=== PATIENT | male | born 1990 | race Hispanic/Latino ===

== ENCOUNTER 2018-04-11 08:44 | Inpatient (IN) | payer OTHER ==
[~2018-04-11] VITALS: Ht 182.9 cm; Wt 86.2 kg
[~2018-04-11 08:44] MED LIST: LEXAPRO10 MG PO; VIVANZ
[2018-04-11] MEDS ORDERED: MORPHINE SULFATE 2 MG/ML SYR IV STA (08:57)
[2018-04-11] MEDS ORDERED: ONDANSETRON HCL INJ 2 MG/ML VIAL IV STA (08:57)
[2018-04-11] MEDS ORDERED: SODIUM CHLORIDE 0.9% 1000ML 1,000 ML IV ONE (09:00)
[2018-04-11 09:03] LABS: BASOPHILS % 0.2 % (0.0-1.0); EOSINOPHILS # (AUTO) 0.1 (0.0-0.4); EOSINOPHILS % 0.3 % (0.0-6.0); HEMATOCRIT 42.3 % (38.2-49.6); HEMOGLOBIN 14.4 g/dL (14.0-18.0); LYMPHOCYTES # (AUTO) 2.4 (1.0-3.2); LYMPHOCYTES % 14.1 % (18.0-39.1); MEAN CORPUSCULAR HEMOGLOBIN 29.3 pg (28-32); MEAN CORPUSCULAR VOLUME 86.2 fL (81-99); MONOCYTES # (AUTO) 1.5 (0.2-0.8); MONOCYTES % 8.6 % (4.4-11.3); NEUTROPHILS # (AUTO) 12.8 (2.1-6.9); NEUTROPHILS % 76.3 % (38.7-80.0); PLATELET COUNT 242 x10e3/uL (140-360); RED BLOOD COUNT 4.91 x10e6/uL (4.3-5.7); RED CELL DISTRIBUTION WIDTH 13.2 % (11.7-14.4)
[2018-04-11 09:14] LABS: ALANINE AMINOTRANSFERASE 32 IU/L (0-55); ALBUMIN/GLOBULIN RATIO 0.9 (0.8-2.0); ALKALINE PHOSPHATASE 96 IU/L (40-150); BLOOD UREA NITROGEN 18 mg/dL (7-26); BUN/CREATININE RATIO 13 (6-25); CALCIUM 10.1 mg/dL (8.4-10.2); CARBON DIOXIDE 26 mmol/L (22-29); CHLORIDE 98 mmol/L (98-107); CREATININE, SERUM 1.34 mg/dL (0.72-1.25); EST GLOMERULAR FILTRATION RATE > 60 ML/MIN (60-); GLUCOSE 145 mg/dL (74-118); SODIUM 135 mmol/L (136-145)
[2018-04-11] MEDS ORDERED: SODIUM CHLORIDE 0.9% 50ML 50 ML ONE (09:52)
[2018-04-11] MEDS ORDERED: IOPAMIDOL 370 MG/ML 200 ML INFUS..BTL INJ ONE (09:52)
--- NOTE | 2018-04-11 10:46 | Diagnostic Imaging Report ---
PROCEDURE: CT ABDOMEN AND PELVIS WITH CONTRAST TECHNIQUE: The abdomen and pelvis were scanned utilizing a multidetector helical scanner from the diaphragm to the lesser trochanter after the IV administration of 100 cc of Isovue 370 and the oral administration of 900 cc of water. Coronal and sagittal multiplanar reformations were obtained. COMPARISON: None. INDICATIONS: RIGHT LOWER QUADRANT ABDOMINAL PAIN FINDINGS: LOWER THORAX: Normal. HEPATOBILIARY: No focal hepatic lesions. No biliary ductal dilatation. SPLEEN: No splenomegaly. PANCREAS: No focal masses or ductal dilatation. ADRENALS: No adrenal nodules. KIDNEYS/URETERS: No hydronephrosis or solid mass lesions. There is a 2 mm non-obstructing left mid pole renal stone. PELVIC ORGANS/BLADDER: Unremarkable. PERITONEUM / RETROPERITONEUM: Extensive stranding and inflammatory change in right lower quadrant with some free fluid. There is phlegmon with a punctate focus of air which may be extraluminal on series 2, image 70. No evidence of drainable fluid collection. LYMPH NODES: Periappendiceal lymph nodes are prominent measuring up to 7 mm short axis. VESSELS: Unremarkable. GI TRACT: The appendix is markedly inflamed measuring up to 1.8 cm with surrounding fat stranding. Appendicolith is present. There is reactive thickening of the cecum. No evidence of bowel obstruction. BONES AND SOFT TISSUES: Unremarkable. IMPRESSION: Appendicitis with extensive surrounding inflammatory changes and phlegmon, suggestive of microperforation. Possible punctate focus of extraluminal air. No evidence of drainable fluid collection. Findings discussed with referring clinician Christofer Greenwood on 04/11/18 at 1050AM. Dictated by: KRISTIE BELLA M.D. on 04/11/2018 at 10:51 Electronically approved by: KRISTIE BELLA M.D. on 04/11/2018 at 10:51
[2018-04-11] MEDS ORDERED: PIPERACILLIN/TAZO 4.5 GM 100 ML IV STA (10:53)
[2018-04-11] MEDS ORDERED: HYDROMORPHONE 1MG/1ML INJ IV STA (10:54)
[2018-04-11] MEDS ORDERED: FENTANYL CITRATE/PF 100MCG/2 ML INJ ONE (10:56)
[2018-04-11] MEDS: SODIUM CHLORIDE 0.9% 1000ML 1,000 ML IV SCH ×2 (12:33→21:35)
[2018-04-11] MEDS: HYDROMORPHONE 1MG/1ML INJ IV PRN ×2 (12:33→17:33)
[2018-04-11 13:07] VITALS: BP 150/87
[2018-04-11 13:25] VITALS: BP 150/87
[2018-04-11] MEDS ORDERED: ACETAMINOPHEN 1000 MG/100 ML IV PRN (14:00)
[2018-04-11 16:49] VITALS: BP 141/83
[2018-04-11] MEDS: ONDANSETRON HCL INJ 2 MG/ML VIAL IV PRN (17:33)
[2018-04-11] MEDS: PIPERACILLIN/TAZO 4.5 GM 100 ML IV SCH (17:33)
[2018-04-11] MEDS ORDERED: PIPER-TAZ 3.375 GM / NS 50ML IV SCH (19:00)
[2018-04-11 19:30] VITALS: BP 127/69
[2018-04-11] MEDS ORDERED: BUPIVACAINE 0.25%/EPI 30ML SDV INJ ONE (19:41)
[2018-04-11 22:07] VITALS: BP 132/84
--- NOTE | 2018-04-11 22:36 | Operative Report ---
DATE OF PROCEDURE: April 11, 2018 PREOPERATIVE DIAGNOSIS: Appendicitis. POSTOPERATIVE DIAGNOSIS: Perforated feculent peritonitis. OPERATIVE PROCEDURE: Laparoscopic appendectomy. ANESTHESIA: Endotracheal, Dr. Patton. INDICATIONS: Cmais[id number]-old male with 3-day history of pain in lower abdomen with fevers and nausea and vomiting. CT scan showed appendicitis with possible rupture. Patient had consented for laparoscopic appendectomy. Attendant risks discussed. PROCEDURE FINDINGS: Perforated appendicitis at the neck of the appendix with feculent peritonitis. DESCRIPTION OF PROCEDURE: The patient brought to the OR, intubated. Abdomen prepped with alcohol and draped in sterile fashion. An infraumbilical incision is made and a 12-mm port inserted intraperitoneally. Insufflation begun. Under direct vision, other port sites placed in the suprapubic and right upper quadrant. Patient has exudate and purulent material in the right lower quadrant and pelvic area. A large phlegmon containing small bowel, omentum, and colon is noted in the right lower quadrant. Using blunt dissection, the phlegmon is removing the omentum from the area of the appendix. The appendix is noted to be perforated at the neck with stool in the vicinity. We proceeded to contain the contamination as much as possible with suctioning and removal of feculent material with grasper. The neck of the appendix exposed by taking the mesoappendix first with the LigaSure instrument down to the base of the cecum. Using Endo RAVI stapler blue load, the neck of the appendix is transected through noninflamed tissue. Staple line checked for bleeding. Hemostasis achieved. The appendix was placed in Endopouch and retrieved out the peritoneal cavity. We used 3 liters of fluid to irrigate the pelvis in the right lower quadrant. We also all the loops of bowel to prevent interloop abscess. There is some collection in the right subdiaphragmatic area, which was also washed out carefully. A 19-Persian Lawrence drain is placed in the right paracolic gutters and taken out through the suprapubic port site. All ports were removed under direct vision. Fascia closure with #0 Vicryl, skin is closed with subcuticular stitch. Patient is then extubated and transported to recovery room in guarded condition. ESTIMATED BLOOD LOSS: 30 mL. Job#: [id number]
[2018-04-12] VITALS (8 sets, daily range): BP systolic 112–134; BP diastolic 64–75
[2018-04-12] MEDS: PIPERACILLIN/TAZO 4.5 GM 100 ML IV SCH ×3 (01:30→17:02)
[2018-04-12] MEDS: SODIUM CHLORIDE 0.9% 1000ML 1,000 ML IV SCH ×3 (02:18→16:17)
[2018-04-12] MEDS: HYDROMORPHONE 1MG/1ML INJ IV PRN ×4 (03:47→20:13)
[2018-04-12 05:33] LABS: BASOPHILS # (AUTO) 0.1 (0.0-0.1); BASOPHILS % 0.5 % (0.0-1.0); HEMATOCRIT 38.5 % (38.2-49.6); HEMOGLOBIN 13.3 g/dL (14.0-18.0); LYMPHOCYTES # (AUTO) 0.5 (1.0-3.2); LYMPHOCYTES % 4.6 % (18.0-39.1); MEAN CORPUSCULAR HGB CONC 34.5 g/dL (31-35); MEAN CORPUSCULAR VOLUME 86.7 fL (81-99); MONOCYTES # (AUTO) 0.6 (0.2-0.8); MONOCYTES % 5.6 % (4.4-11.3); NEUTROPHILS # (AUTO) 9.1 (2.1-6.9); PLATELET COUNT 221 x10e3/uL (140-360); RED BLOOD COUNT 4.44 x10e6/uL (4.3-5.7); RED CELL DISTRIBUTION WIDTH 13.4 % (11.7-14.4)
[2018-04-12 05:52] LABS: ANION GAP 13.1 mmol/L (8-16); BLOOD UREA NITROGEN 17 mg/dL (7-26); BUN/CREATININE RATIO 15 (6-25); CALCIUM 8.8 mg/dL (8.4-10.2); CARBON DIOXIDE 26 mmol/L (22-29); CHLORIDE 102 mmol/L (98-107); CREATININE, SERUM 1.13 mg/dL (0.72-1.25); EST GLOMERULAR FILTRATION RATE > 60 ML/MIN (60-); GLUCOSE 155 mg/dL (74-118); POTASSIUM 4.1 mmol/L (3.5-5.1); SODIUM 137 mmol/L (136-145)
[2018-04-12 06:22] LABS: BAND NEUTROPHILS % (MANUAL) 20 %; LYMPHOCYTES % (MANUAL) 7 % (19-48); MONOCYTES % (MANUAL) 6 % (3.4-9.0); NEUTROPHILS % (MANUAL) 67 % (40-74)
[2018-04-12 06:24] LABS: PLATELET ESTIMATE ADEQUATE; PLATELET MORPHOLOGY COMMENT NORMAL; RBC MORPHOLOGY COMMENT NORMAL
[2018-04-13] VITALS (8 sets, daily range): BP systolic 110–153; BP diastolic 59–86
[2018-04-13] MEDS: SODIUM CHLORIDE 0.9% 1000ML 1,000 ML IV SCH ×5 (00:12→23:00)
[2018-04-13] MEDS: HYDROMORPHONE 1MG/1ML INJ IV PRN ×5 (00:15→19:50)
[2018-04-13] MEDS: ONDANSETRON HCL INJ 2 MG/ML VIAL IV PRN ×5 (00:15→19:49)
[2018-04-13] MEDS: PIPERACILLIN/TAZO 4.5 GM 100 ML IV SCH ×3 (01:53→18:04)
[2018-04-13 06:27] LABS: BASOPHILS % 0.3 % (0.0-1.0); EOSINOPHILS % 0.3 % (0.0-6.0); HEMATOCRIT 36.1 % (38.2-49.6); HEMOGLOBIN 11.8 g/dL (14.0-18.0); LYMPHOCYTES # (AUTO) 0.8 (1.0-3.2); LYMPHOCYTES % 6.4 % (18.0-39.1); MEAN CORPUSCULAR HEMOGLOBIN 29.4 pg (28-32); MEAN CORPUSCULAR HGB CONC 32.7 g/dL (31-35); MONOCYTES # (AUTO) 0.5 (0.2-0.8); MONOCYTES % 3.9 % (4.4-11.3); NEUTROPHILS # (AUTO) 10.4 (2.1-6.9); NEUTROPHILS % 88.4 % (38.7-80.0); PLATELET COUNT 246 x10e3/uL (140-360); RED BLOOD COUNT 4.02 x10e6/uL (4.3-5.7); RED CELL DISTRIBUTION WIDTH 13.8 % (11.7-14.4)
[2018-04-13 06:33] LABS: MEAN CORPUSCULAR VOLUME 89.8 fL (81-99)
[2018-04-13 06:42] LABS: ANION GAP 11.9 mmol/L (8-16); BLOOD UREA NITROGEN 15 mg/dL (7-26); BUN/CREATININE RATIO 15 (6-25); CARBON DIOXIDE 29 mmol/L (22-29); CHLORIDE 99 mmol/L (98-107); CREATININE, SERUM 0.99 mg/dL (0.72-1.25); EST GLOMERULAR FILTRATION RATE > 60 ML/MIN (60-); GLUCOSE 145 mg/dL (74-118); POTASSIUM 3.9 mmol/L (3.5-5.1); SODIUM 136 mmol/L (136-145)
[2018-04-13 10:13] LABS: BAND NEUTROPHILS % (MANUAL) 19 %; EOSINOPHILS % (MANUAL) 1 % (0-7); LYMPHOCYTES % (MANUAL) 10 % (19-48); MONOCYTES % (MANUAL) 5 % (3.4-9.0); NEUTROPHILS % (MANUAL) 65 % (40-74); PLATELET ESTIMATE ADEQUATE; PLATELET MORPHOLOGY COMMENT NORMAL; RBC MORPHOLOGY COMMENT NORMAL
[2018-04-13] MEDS ORDERED: ONDANSETRON HCL INJ 2 MG/ML VIAL ONE (11:48)
[2018-04-13] MEDS ORDERED: ROCURONIUM BROMIDE 10 MG/ML 5ML VIAL ONE (11:48)
[2018-04-13] MEDS ORDERED: SEVOFLURANE INHAL SOLN 250 ML PEN BTL ONE (11:48)
[2018-04-13] MEDS ORDERED: CEFOXITIN SOD 1 GM VIAL ONE (11:48)
[2018-04-13] MEDS ORDERED: LIDOCAINE HCL 2% LOCAL INJ 5 ML SDV VIAL INJ ONE (11:48)
[2018-04-13] MEDS ORDERED: DEXAMETHASONE SOD PHOS INJ 4 MG/ML VIAL ONE (11:48)
[2018-04-13] MEDS ORDERED: PROPOFOL IV EMULSION 10 MG/ML 20 ML VIAL ONE (11:48)
[2018-04-14] VITALS (7 sets, daily range): BP systolic 117–151; BP diastolic 63–82
[2018-04-14] MEDS: PIPERACILLIN/TAZO 4.5 GM 100 ML IV SCH ×3 (02:13→17:27)
[2018-04-14] MEDS: HYDROMORPHONE 1MG/1ML INJ IV PRN ×6 (04:33→21:58)
[2018-04-14] MEDS: ONDANSETRON HCL INJ 2 MG/ML VIAL IV PRN ×6 (04:33→21:58)
[2018-04-14 05:46] LABS: BASOPHILS % 0.2 % (0.0-1.0); EOSINOPHILS # (AUTO) 0.2 (0.0-0.4); EOSINOPHILS % 1.3 % (0.0-6.0); HEMATOCRIT 34.5 % (38.2-49.6); HEMOGLOBIN 11.4 g/dL (14.0-18.0); LYMPHOCYTES # (AUTO) 1.2 (1.0-3.2); MEAN CORPUSCULAR HEMOGLOBIN 29.5 pg (28-32); MEAN CORPUSCULAR VOLUME 89.4 fL (81-99); MONOCYTES # (AUTO) 0.8 (0.2-0.8); NEUTROPHILS # (AUTO) 10.9 (2.1-6.9); NEUTROPHILS % 81.5 % (38.7-80.0); PLATELET COUNT 265 x10e3/uL (140-360); RED BLOOD COUNT 3.86 x10e6/uL (4.3-5.7); RED CELL DISTRIBUTION WIDTH 14.3 % (11.7-14.4)
[2018-04-14] MEDS: SODIUM CHLORIDE 0.9% 1000ML 1,000 ML IV SCH ×3 (06:17→20:58)
[2018-04-14 06:19] LABS: ALANINE AMINOTRANSFERASE 29 IU/L (0-55); ALBUMIN 2.2 g/dL (3.5-5.0); ALBUMIN/GLOBULIN RATIO 0.6 (0.8-2.0); ALKALINE PHOSPHATASE 86 IU/L (40-150); ANION GAP 11.7 mmol/L (8-16); BLOOD UREA NITROGEN 17 mg/dL (7-26); BUN/CREATININE RATIO 18 (6-25); CARBON DIOXIDE 28 mmol/L (22-29); CHLORIDE 102 mmol/L (98-107); CREATININE, SERUM 0.96 mg/dL (0.72-1.25); EST GLOMERULAR FILTRATION RATE > 60 ML/MIN (60-); GLUCOSE 117 mg/dL (74-118); POTASSIUM 3.7 mmol/L (3.5-5.1); SODIUM 138 mmol/L (136-145)
[2018-04-14] MEDS: HYDROCODONE/APAP 7.5MG-325MG 1 EA TAB PO PRN (18:17)
[2018-04-14] MEDS: ACETAMINOPHEN 325 MG TAB PO PRN (20:54)
[2018-04-15] VITALS (7 sets, daily range): BP systolic 124–151; BP diastolic 65–77
[2018-04-15] MEDS: PIPERACILLIN/TAZO 4.5 GM 100 ML IV SCH ×3 (02:00→17:21)
[2018-04-15] MEDS: SODIUM CHLORIDE 0.9% 1000ML 1,000 ML IV SCH ×4 (02:20→23:40)
[2018-04-15] MEDS: HYDROCODONE/APAP 7.5MG-325MG 1 EA TAB PO PRN ×3 (04:09→14:30)
[2018-04-15] MEDS: HYDROMORPHONE 1MG/1ML INJ IV PRN ×4 (05:20→19:56)
[2018-04-15 05:50] LABS: BASOPHILS # (AUTO) 0.1 (0.0-0.1); BASOPHILS % 0.9 % (0.0-1.0); EOSINOPHILS # (AUTO) 0.2 (0.0-0.4); EOSINOPHILS % 1.2 % (0.0-6.0); HEMATOCRIT 34.1 % (38.2-49.6); HEMOGLOBIN 11.4 g/dL (14.0-18.0); LYMPHOCYTES # (AUTO) 1.6 (1.0-3.2); LYMPHOCYTES % 11.7 % (18.0-39.1); MEAN CORPUSCULAR HEMOGLOBIN 29.5 pg (28-32); MEAN CORPUSCULAR HGB CONC 33.4 g/dL (31-35); MEAN CORPUSCULAR VOLUME 88.1 fL (81-99); MONOCYTES % 7.5 % (4.4-11.3); NEUTROPHILS # (AUTO) 10.3 (2.1-6.9); NEUTROPHILS % 74.2 % (38.7-80.0); PLATELET COUNT 308 x10e3/uL (140-360); RED BLOOD COUNT 3.87 x10e6/uL (4.3-5.7); RED CELL DISTRIBUTION WIDTH 14.6 % (11.7-14.4)
[2018-04-15 06:07] LABS: ANION GAP 13.5 mmol/L (8-16); BLOOD UREA NITROGEN 14 mg/dL (7-26); BUN/CREATININE RATIO 16 (6-25); CALCIUM 8.9 mg/dL (8.4-10.2); CARBON DIOXIDE 27 mmol/L (22-29); CHLORIDE 101 mmol/L (98-107); CREATININE, SERUM 0.88 mg/dL (0.72-1.25); EST GLOMERULAR FILTRATION RATE > 60 ML/MIN (60-); GLUCOSE 108 mg/dL (74-118); POTASSIUM 3.5 mmol/L (3.5-5.1); SODIUM 138 mmol/L (136-145)
[2018-04-15] MEDS ORDERED: BISACODYL 10 MG SUPP PR NR (07:45)
[2018-04-15 07:58] LABS: BAND NEUTROPHILS % (MANUAL) 1 %; EOSINOPHILS % (MANUAL) 1 % (0-7); LYMPHOCYTES % (MANUAL) 7 % (19-48); MONOCYTES % (MANUAL) 6 % (3.4-9.0); NEUTROPHILS % (MANUAL) 81 % (40-74)
[2018-04-15 07:59] LABS: ANISOCYTOSIS SLIGHT; HYPOCHROMASIA SLIGHT; PLATELET ESTIMATE ADEQUATE; PLATELET MORPHOLOGY COMMENT NORMAL; RBC MORPHOLOGY COMMENT NORMAL
[2018-04-15] MEDS: ONDANSETRON HCL INJ 2 MG/ML VIAL IV PRN (10:22)
--- NOTE | 2018-04-15 13:20 | Consultation ---
DATE OF CONSULTATION: April 11, 2018 CHIEF COMPLAINT: Abdominal pain. 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 He admits to some subjective fever and chills. No diarrhea. PAST MEDICAL HISTORY: Unremarkable for any asthma or diabetes. Only ADHD. He had no previous surgery. DRUG ALLERGIES: NONE. SOCIAL HABITS: No smoking and alcohol abuse. REVIEW OF SYSTEMS: No cough, shortness of breath or chest pain. EXAM VITAL SIGNS: Positive for temperature 101.3, blood pressure 140/80, with pulse 108. GENERAL: He is awake, alert in moderate discomfort. HEENT: Sclerae nonicteric. NECK: Supple. LUNGS: Clear. HEART: Regular rate and rhythm. ABDOMEN: Soft with guarding tenderness and rebound right lower quadrant. White cell count 17. Creatinine 1.3. CT scan of the abdomen showed evidence of inflamed appendix with possible perforation. ASSESSMENT: Acute perforated appendicitis. PLAN: Laparoscopic appendectomy. Attendant risks discussed. Job#: [id number]
[2018-04-16] VITALS: BP 134/68
[2018-04-16] MEDS: HYDROMORPHONE 1MG/1ML INJ IV PRN ×5 (00:15→21:10)
[2018-04-16] MEDS: ONDANSETRON HCL INJ 2 MG/ML VIAL IV PRN ×4 (00:15→17:09)
[2018-04-16] MEDS: SODIUM CHLORIDE 0.9% 1000ML 1,000 ML IV SCH ×3 (00:30→12:49)
[2018-04-16] MEDS: ACETAMINOPHEN 325 MG TAB PO PRN (00:30)
[2018-04-16] MEDS: PIPERACILLIN/TAZO 4.5 GM 100 ML IV SCH ×3 (02:01→17:09)
[2018-04-16 04:00] VITALS: BP 126/69
[2018-04-16] MEDS: HYDROCODONE/APAP 7.5MG-325MG 1 EA TAB PO PRN (05:37)
[2018-04-16 05:47] LABS: BASOPHILS # (AUTO) 0.1 (0.0-0.1); BASOPHILS % 0.8 % (0.0-1.0); EOSINOPHILS # (AUTO) 0.2 (0.0-0.4); EOSINOPHILS % 0.9 % (0.0-6.0); HEMOGLOBIN 10.9 g/dL (14.0-18.0); MEAN CORPUSCULAR HEMOGLOBIN 29.5 pg (28-32); MEAN CORPUSCULAR HGB CONC 34.1 g/dL (31-35); MEAN CORPUSCULAR VOLUME 86.7 fL (81-99); MONOCYTES # (AUTO) 1.2 (0.2-0.8); MONOCYTES % 6.9 % (4.4-11.3); NEUTROPHILS # (AUTO) 12.2 (2.1-6.9); NEUTROPHILS % 72.3 % (38.7-80.0); PLATELET COUNT 332 x10e3/uL (140-360); RED BLOOD COUNT 3.69 x10e6/uL (4.3-5.7); RED CELL DISTRIBUTION WIDTH 14.8 % (11.7-14.4)
[2018-04-16 06:10] LABS: ANION GAP 11.5 mmol/L (8-16); BLOOD UREA NITROGEN 11 mg/dL (7-26); BUN/CREATININE RATIO 13 (6-25); CALCIUM 8.7 mg/dL (8.4-10.2); CARBON DIOXIDE 29 mmol/L (22-29); CHLORIDE 102 mmol/L (98-107); CREATININE, SERUM 0.88 mg/dL (0.72-1.25); EST GLOMERULAR FILTRATION RATE > 60 ML/MIN (60-); GLUCOSE 109 mg/dL (74-118); POTASSIUM 3.5 mmol/L (3.5-5.1); SODIUM 139 mmol/L (136-145)
[2018-04-16 06:55] LABS: BAND NEUTROPHILS % (MANUAL) 3 %; EOSINOPHILS % (MANUAL) 1 % (0-7); LYMPHOCYTES % (MANUAL) 7 % (19-48); METAMYELOCYTES % (MANUAL) 3 % (0-0); MONOCYTES % (MANUAL) 5 % (3.4-9.0); NEUTROPHILS % (MANUAL) 81 % (40-74)
[2018-04-16 06:56] LABS: ANISOCYTOSIS SLIGHT; PLATELET ESTIMATE ADEQUATE; PLATELET MORPHOLOGY COMMENT NORMAL; POLYCHROMASIA FEW; RBC MORPHOLOGY COMMENT NORMAL
[2018-04-16 09:25] VITALS: BP 121/70
--- NOTE | 2018-04-16 11:55 | Diagnostic Imaging Report ---
PROCEDURE: CT ABDOMEN AND PELVIS WITH CONTRAST TECHNIQUE: The abdomen and pelvis were scanned utilizing a multidetector helical scanner from the diaphragm to the lesser trochanter after the IV administration of 100 cc of Isovue 370 and the oral administration of water. Coronal and sagittal multiplanar reformations were obtained. Total DLP: 418.20 COMPARISON: [facility], CT, CT ABDOMEN/PELVIS W, 04/11/2018, 10:18. INDICATIONS: ABDOMINAL PAIN. Ruptured appendicitis and prior recent examination. FINDINGS: TUBES and LINES: There is a surgical drain which enters the right lower quadrant anteriorly posterolaterally, with the distal tip in the right upper quadrant posterolaterally just lateral to segment 6 of the liver. LOWER THORAX: Interval development of bilateral small pleural effusions and posterior bibasilar compressive atelectasis. HEPATOBILIARY: No focal hepatic lesions. No biliary ductal dilatation. SPLEEN: No splenomegaly. PANCREAS: No focal masses or ductal dilatation. ADRENALS: No adrenal nodules. KIDNEYS/URETERS: No hydronephrosis, stones, or solid mass lesions. PELVIC ORGANS/BLADDER: Small functional fluid. PERITONEUM / RETROPERITONEUM: Small volume of free fluid within the peritoneal cavity, particularly in the pelvis. LYMPH NODES: Mild reactive mesenteric lymphadenopathy. VESSELS: Unremarkable. GI TRACT: Status post appendectomy with postoperative changes in the right lower quadrant. Small volume postoperative fluid in the right lower quadrant without loculated fluid collection at this time. There is decompression of the terminal ileum with a possible transitional point is seen on coronal image 38. BONES AND SOFT TISSUES: Unremarkable. IMPRESSION: 1. Status post appendectomy. Postoperative fat stranding/inflammatory changes and a small volume of free fluid, however, no loculated fluid collection at this time. 2. Dilated jejunal and ileal loops with decompressed distal ileum may represent postoperative ileus versus developing obstruction. Recommend followup KUBs to resolution. 3. Interval development of bilateral small pleural effusions and bibasilar compressive atelectasis. Prosper Brandon M.D. Dictated by: Prosper Brandon M.D. on 04/16/2018 at 12:00 Electronically approved by: Prosper Brandon M.D. on 04/16/2018 at 12:00
[2018-04-16 12:00] VITALS: BP 132/72
[2018-04-16 16:00] VITALS: BP 135/73
[2018-04-16] MEDS ORDERED: SODIUM CHLORIDE 0.9% 50ML 50 ML ONE (17:00)
[2018-04-16] MEDS ORDERED: IOPAMIDOL 370 MG/ML 200 ML INFUS..BTL INJ ONE (17:00)
[2018-04-16 20:00] VITALS: BP 138/74
[2018-04-17] VITALS (8 sets, daily range): BP systolic 131–149; BP diastolic 70–82
[2018-04-17] MEDS: SODIUM CHLORIDE 0.9% 1000ML 1,000 ML IV SCH ×4 (01:00→23:12)
[2018-04-17] MEDS: HYDROMORPHONE 1MG/1ML INJ IV PRN ×4 (01:40→19:36)
[2018-04-17] MEDS: PIPERACILLIN/TAZO 4.5 GM 100 ML IV SCH ×3 (01:45→18:32)
[2018-04-17 05:35] LABS: BASOPHILS # (AUTO) 0.1 (0.0-0.1); BASOPHILS % 0.6 % (0.0-1.0); EOSINOPHILS # (AUTO) 0.2 (0.0-0.4); HEMATOCRIT 32.2 % (38.2-49.6); MEAN CORPUSCULAR HEMOGLOBIN 29.6 pg (28-32); MEAN CORPUSCULAR HGB CONC 34.2 g/dL (31-35); MEAN CORPUSCULAR VOLUME 86.6 fL (81-99); MONOCYTES # (AUTO) 1.2 (0.2-0.8); MONOCYTES % 6.5 % (4.4-11.3); NEUTROPHILS # (AUTO) 12.5 (2.1-6.9); NEUTROPHILS % 70.2 % (38.7-80.0); PLATELET COUNT 348 x10e3/uL (140-360); RED BLOOD COUNT 3.72 x10e6/uL (4.3-5.7)
[2018-04-17 05:59] LABS: ANION GAP 12.7 mmol/L (8-16); BLOOD UREA NITROGEN 9 mg/dL (7-26); BUN/CREATININE RATIO 11 (6-25); CALCIUM 8.9 mg/dL (8.4-10.2); CARBON DIOXIDE 29 mmol/L (22-29); CHLORIDE 100 mmol/L (98-107); CREATININE, SERUM 0.85 mg/dL (0.72-1.25); EST GLOMERULAR FILTRATION RATE > 60 ML/MIN (60-); GLUCOSE 97 mg/dL (74-118); POTASSIUM 3.7 mmol/L (3.5-5.1); SODIUM 138 mmol/L (136-145)
[2018-04-17 07:09] LABS: BAND NEUTROPHILS % (MANUAL) 4 %; EOSINOPHILS % (MANUAL) 1 % (0-7); LYMPHOCYTES % (MANUAL) 7 % (19-48); METAMYELOCYTES % (MANUAL) 2 % (0-0); MONOCYTES % (MANUAL) 4 % (3.4-9.0); MYELOCYTES % (MANUAL) 3 % (0-0); NEUTROPHILS % (MANUAL) 78 % (40-74)
[2018-04-17 07:10] LABS: PLATELET ESTIMATE ADEQUATE; PLATELET MORPHOLOGY COMMENT NORMAL; RBC MORPHOLOGY COMMENT NORMAL
[2018-04-17] MEDS: HYDROCODONE/APAP 7.5MG-325MG 1 EA TAB PO PRN ×2 (10:34→22:15)
[2018-04-17] MEDS ORDERED: IOPAMIDOL 370 MG/ML 200 ML INFUS..BTL INJ ONE (18:15)
[2018-04-17] MEDS ORDERED: SODIUM CHLORIDE 0.9% 50ML 50 ML ONE (18:15)
--- NOTE | 2018-04-17 18:52 | Diagnostic Imaging Report ---
PROCEDURE: CT ABDOMEN AND PELVIS WITH CONTRAST TECHNIQUE: The abdomen and pelvis were scanned utilizing a multidetector helical scanner from the diaphragm to the lesser trochanter after the IV administration of 100 cc of Isovue 370 and the oral administration of water. Coronal and sagittal multiplanar reformations were obtained. COMPARISON: [facility], CT, CT ABDOMEN/PELVIS W, 04/16/2018, 9:44. INDICATIONS: FEVER FINDINGS: TUBES and LINES: Unchanged surgical drain which enters the right lower quadrant anteriorly posterolaterally, with the distal tip in the right upper quadrant posterolaterally just lateral to segment 6 of the liver. LOWER THORAX: Unchanged bilateral small pleural effusions and posterior bibasilar compressive atelectasis. HEPATOBILIARY: No focal hepatic lesions. No biliary ductal dilatation. Layering hyperdensity in the gallbladder fundus (series 2 image 38), likely representing sludge. No wall thickening, or pericholecystic fluid. SPLEEN: No splenomegaly. PANCREAS: No focal masses or ductal dilatation. ADRENALS: No adrenal nodules. KIDNEYS/URETERS: No hydronephrosis or solid mass lesions. Stable 3 mm nonobstructing calculus in the left inferior pole (series 2, image 44). PELVIC ORGANS/BLADDER: No bladder focal lesions. Prostate and seminal vesicles are unremarkable. PERITONEUM / RETROPERITONEUM: No significant ascites. * There is an approximately 5.5 x 2.4 x 3.6 cm fluid collection in the left pelvis (series 2, image 83), which shows mild peripheral enhancement. * An approximately 3.5 x 3.3 x 3.4 cm, well-defined, fluid collection is noted between the rectum, and bladder (series 2, image 90), which shows mild peripheral wall enhancement. * 5.2 x 4.1 x 11.7 cm well-circumscribed fluid collection in the posterior upper mid pelvis (series 2, image 73, and sagittal image 62), which does not show peripheral enhancement. LYMPH NODES: No intra-abdominal, retroperitoneal, pelvic, or inguinal adenopathy. Mildly prominent mesenteric nodes are again identified. VESSELS: Celiac trunk, superior and inferior mesenteric, and bilateral renal arteries are patent. Portal, superior mesenteric, and splenic veins are patent. GI TRACT: Status post appendectomy with moderate fat stranding surrounding the cecum and proximal ascending colon, consistent with postoperative changes. Persistent dilation of small bowel loops involving the jejunum, proximal ileum. The distal portion of the ileum is decompressed. BONES AND SOFT TISSUES: Unremarkable. IMPRESSION: 1. Well-circumscribed fluid collections in the left pelvis and posterior pelvis between the bladder and rectum with peripheral enhancement, suspicious for abscesses. 2. A well-circumscribed organized fluid collection is noted in the posterior upper pelvis, however, no peripheral enhancement is noted. This may represent a developing abscess. 3. Postoperative changes consistent with prior appendectomy. No organized fluid collection is noted at the surgical site. 4. Unchanged bilateral small pleural effusions and posterior bibasilar compressive atelectasis. 5. Findings in the gallbladder likely represents sludge. Caleb Rasmussen M.D. Dictated by: Caleb Rasmussen M.D. on 04/17/2018 at 18:57 Electronically approved by: Caleb Rasmussen M.D. on 04/17/2018 at 18:57
[2018-04-18] VITALS (9 sets, daily range): BP systolic 124–148; BP diastolic 62–83
[2018-04-18] MEDS: HYDROMORPHONE 1MG/1ML INJ IV PRN ×5 (00:25→22:10)
[2018-04-18] MEDS: PIPERACILLIN/TAZO 4.5 GM 100 ML IV SCH ×2 (01:12→08:47)
[2018-04-18] MEDS: SODIUM CHLORIDE 0.9% 1000ML 1,000 ML IV SCH ×4 (04:58→21:52)
[2018-04-18 05:10] LABS: BASOPHILS # (AUTO) 0.1 (0.0-0.1); BASOPHILS % 0.6 % (0.0-1.0); EOSINOPHILS # (AUTO) 0.2 (0.0-0.4); EOSINOPHILS % 1.3 % (0.0-6.0); HEMATOCRIT 31.2 % (38.2-49.6); HEMOGLOBIN 10.5 g/dL (14.0-18.0); LYMPHOCYTES # (AUTO) 1.8 (1.0-3.2); LYMPHOCYTES % 12.9 % (18.0-39.1); MEAN CORPUSCULAR HEMOGLOBIN 29.6 pg (28-32); MEAN CORPUSCULAR HGB CONC 33.7 g/dL (31-35); MEAN CORPUSCULAR VOLUME 87.9 fL (81-99); MONOCYTES # (AUTO) 0.9 (0.2-0.8); MONOCYTES % 6.2 % (4.4-11.3); NEUTROPHILS # (AUTO) 9.7 (2.1-6.9); NEUTROPHILS % 69.5 % (38.7-80.0); PLATELET COUNT 385 x10e3/uL (140-360); RED BLOOD COUNT 3.55 x10e6/uL (4.3-5.7); RED CELL DISTRIBUTION WIDTH 15.3 % (11.7-14.4)
[2018-04-18 05:19] LABS: INR 1.18; PROTHROMBIN TIME 14.1 seconds (11.9-14.5)
[2018-04-18 05:20] LABS: PARTIAL THROMBOPLASTIN TIME 35.4 seconds (23.8-35.5)
[2018-04-18 06:30] LABS: BAND NEUTROPHILS % (MANUAL) 1 %; LYMPHOCYTES % (MANUAL) 14 % (19-48); MONOCYTES % (MANUAL) 2 % (3.4-9.0); NEUTROPHILS % (MANUAL) 83 % (40-74); NUCLEATED RED BLOOD CELLS 2; PLATELET ESTIMATE ADEQUATE; PLATELET MORPHOLOGY COMMENT FEW LARGE; RBC MORPHOLOGY COMMENT NORMAL
[2018-04-18] MEDS: ONDANSETRON HCL INJ 2 MG/ML VIAL IV PRN ×3 (08:47→22:50)
[2018-04-18] MEDS ORDERED: LIDOCAINE HCL 1% LOCAL INJ 20 ML VIAL ONE ×2 (08:52→10:28)
[2018-04-18] MEDS ORDERED: MIDAZOLAM HCL 2 MG/2 ML VIAL ONE (09:28)
[2018-04-18] MEDS ORDERED: FENTANYL CITRATE/PF 100MCG/2 ML INJ ONE (09:29)
[2018-04-18] MEDS ORDERED: SODIUM CHLORIDE 0.9% 100 ML 100 ML ONE (10:24)
[2018-04-18] MEDS ORDERED: KETOROLAC TROMETHAMINE 30 MG/ML VIAL ONE (11:02)
[2018-04-18] MEDS: HYDROCODONE/APAP 7.5MG-325MG 1 EA TAB PO PRN (14:43)
--- NOTE | 2018-04-18 15:49 | Diagnostic Imaging Report ---
PROCEDURE:CT guided drainage of abdominal collections COMPARISON:CT Abdomen/Pelvis 04/17/18. INDICATIONS:DRAIN ABD FLUID TECHNIQUE/FINDINGS: Informed consent was obtained. The patient was prepped and draped in sterile fashion. Preliminary CT was performed, which demonstrated a upper midline abdominal fluid collection, a left lower abdominal deep collection and a small superficial left lower abdominal collection. Additional perirectal pelvic collection was also noted. We initially targeted a path to the upper midline abdominal collection. 1% subcutaneous lidocaine was administered. Subsequently, via a left sided approach an 18 gauge x 15 cm Chiba needle was advanced into the collection. Amplatz wire was used to secure access. Sequential dilatation was performed. Subsequently a 10 Fr MP catheter was placed (drain number 1). A total of 100 cc of serous yellow fluid was aspirated. Subsequently, attention was turned to the left lower abdominal superficial fluid collection. A 10 cm Chiba needle was advanced into the small collection and approximately 1 cc of clear serous fluid was aspirated. No drain was left in place. We then advanced a 10 cm Chiba needle into the deeper left lower abdominal collection. Amplatz wire was used to secure access, sequential dilatation was performed, and an 8 Fr DM catheter was placed (drain number 2). Approximately 20 cc of serosanguineous cloudy fluid was aspirated. Subsequent CT demonstrated decompression of the upper midline and left lower quadrant collections. There was partial decompression of the perirectal pelvic collection, suggesting that it may have communicated with the left lower abdominal collection. Furthermore, the patient was in substantial discomfort at this point and stated he did not want an additional drain for the pelvic collection (which would have been transgluteal approach). Therefore the procedure was terminated. Catheters were attached to bag drainage and secured with Silk sutures and sterile dressings. CONCLUSION: CT guided drainage of midline and left lower abdominal fluid collections with decompression as above. Aspiration of superficial left lower abdominal collection. Pelvic collection was partially decompressed and patient did not want a transgluteal drain so no drain was placed. PLAN: Flush both drains 1 and 2 with 10 cc of normal saline q 8 hours to the patient and to the bag. Continue to monitor drain outputs and follow-up with microbiology results. If outputs decrease to less than 10 cc/day and/or cultures are negative can discuss drain removal. If the patient has persistent leukocytosis or concerning for enlarging pelvic collection, then can re-discuss with the patient for potential additional drainage. Dictated by: KRISTIE BELLA M.D. on 04/18/2018 at 15:54 Electronically approved by: KRISTIE BELLA M.D. on 04/18/2018 at 15:54
[2018-04-18] MEDS: ESCITALOPRAM OXALATE 10 MG TAB PO SCH (21:52)
[2018-04-19] VITALS (8 sets, daily range): BP systolic 137–153; BP diastolic 78–86
[2018-04-19] MEDS: ONDANSETRON HCL INJ 2 MG/ML VIAL IV PRN ×5 (02:11→20:17)
[2018-04-19] MEDS: HYDROMORPHONE 1MG/1ML INJ IV PRN ×5 (02:11→20:17)
[2018-04-19] MEDS: SODIUM CHLORIDE 0.9% 1000ML 1,000 ML IV SCH ×4 (08:26→22:58)
[2018-04-19] MEDS: PIPER-TAZ 3.375 GM 50 ML IV SCH ×2 (14:31→21:00)
[2018-04-19] MEDS: VIVANZ PO SCH (21:00)
[2018-04-19] MEDS: ESCITALOPRAM OXALATE 10 MG TAB PO SCH (21:00)
[2018-04-20] VITALS (8 sets, daily range): BP systolic 124–149; BP diastolic 71–86
[2018-04-20] MEDS: ONDANSETRON HCL INJ 2 MG/ML VIAL IV PRN ×3 (02:55→16:12)
[2018-04-20] MEDS: HYDROMORPHONE 1MG/1ML INJ IV PRN ×3 (02:55→16:12)
[2018-04-20] MEDS: PIPER-TAZ 3.375 GM 50 ML IV SCH ×3 (05:48→21:29)
[2018-04-20] MEDS: SODIUM CHLORIDE 0.9% 1000ML 1,000 ML IV SCH (05:49)
[2018-04-20 07:07] LABS: BASOPHILS % 0.3 % (0.0-1.0); EOSINOPHILS # (AUTO) 0.1 (0.0-0.4); HEMATOCRIT 31.5 % (38.2-49.6); HEMOGLOBIN 10.6 g/dL (14.0-18.0); LYMPHOCYTES # (AUTO) 1.3 (1.0-3.2); LYMPHOCYTES % 10.6 % (18.0-39.1); MEAN CORPUSCULAR HEMOGLOBIN 29.6 pg (28-32); MEAN CORPUSCULAR HGB CONC 33.7 g/dL (31-35); MONOCYTES # (AUTO) 0.7 (0.2-0.8); MONOCYTES % 5.2 % (4.4-11.3); NEUTROPHILS # (AUTO) 10.2 (2.1-6.9); NEUTROPHILS % 80.8 % (38.7-80.0); PLATELET COUNT 423 x10e3/uL (140-360); RED BLOOD COUNT 3.58 x10e6/uL (4.3-5.7); RED CELL DISTRIBUTION WIDTH 14.9 % (11.7-14.4)
[2018-04-20 07:27] LABS: ALANINE AMINOTRANSFERASE 97 IU/L (0-55); ALBUMIN 2.3 g/dL (3.5-5.0); ALBUMIN/GLOBULIN RATIO 0.6 (0.8-2.0); ALKALINE PHOSPHATASE 89 IU/L (40-150); ANION GAP 14.8 mmol/L (8-16); BLOOD UREA NITROGEN 7 mg/dL (7-26); BUN/CREATININE RATIO 8 (6-25); CALCIUM 8.7 mg/dL (8.4-10.2); CARBON DIOXIDE 26 mmol/L (22-29); CHLORIDE 102 mmol/L (98-107); CREATININE, SERUM 0.88 mg/dL (0.72-1.25); EST GLOMERULAR FILTRATION RATE > 60 ML/MIN (60-); GLUCOSE 92 mg/dL (74-118); POTASSIUM 3.8 mmol/L (3.5-5.1); SODIUM 139 mmol/L (136-145)
[2018-04-20 09:38] LABS: BAND NEUTROPHILS % (MANUAL) 3 %; EOSINOPHILS % (MANUAL) 1 % (0-7); LYMPHOCYTES % (MANUAL) 12 % (19-48); MONOCYTES % (MANUAL) 4 % (3.4-9.0); NEUTROPHILS % (MANUAL) 80 % (40-74)
[2018-04-20 09:39] LABS: PLATELET ESTIMATE SLIGHTLY INCREASED; PLATELET MORPHOLOGY COMMENT NORMAL
[2018-04-20 09:40] LABS: RBC MORPHOLOGY COMMENT NORMAL
[2018-04-20] MEDS: HYDROCODONE/APAP 7.5MG-325MG 1 EA TAB PO PRN (19:53)
[2018-04-20] MEDS: VIVANZ PO SCH (21:00)
[2018-04-20] MEDS: ESCITALOPRAM OXALATE 10 MG TAB PO SCH (21:29)
[2018-04-21] VITALS (8 sets, daily range): BP systolic 117–134; BP diastolic 56–73
[2018-04-21] MEDS: HYDROCODONE/APAP 7.5MG-325MG 1 EA TAB PO PRN ×2 (00:14→07:25)
[2018-04-21] MEDS: ONDANSETRON HCL INJ 2 MG/ML VIAL IV PRN ×2 (01:17→20:46)
[2018-04-21] MEDS: PIPER-TAZ 3.375 GM 50 ML IV SCH ×3 (06:24→22:00)
[2018-04-21] MEDS: HYDROMORPHONE 1MG/1ML INJ IV PRN ×2 (13:48→20:45)
[2018-04-21] MEDS: VIVANZ PO SCH (21:00)
[2018-04-21] MEDS: ESCITALOPRAM OXALATE 10 MG TAB PO SCH (21:47)
[2018-04-22] VITALS: BP 126/60
[2018-04-22] MEDS: HYDROMORPHONE 1MG/1ML INJ IV PRN ×2 (01:02→05:17)
[2018-04-22 04:00] VITALS: BP 122/61
[2018-04-22] MEDS: PIPER-TAZ 3.375 GM 50 ML IV SCH ×2 (05:17→14:27)
[2018-04-22 05:24] LABS: BASOPHILS % 0.3 % (0.0-1.0); EOSINOPHILS # (AUTO) 0.1 (0.0-0.4); EOSINOPHILS % 0.9 % (0.0-6.0); HEMATOCRIT 30.9 % (38.2-49.6); HEMOGLOBIN 10.2 g/dL (14.0-18.0); LYMPHOCYTES # (AUTO) 1.4 (1.0-3.2); LYMPHOCYTES % 10.5 % (18.0-39.1); MEAN CORPUSCULAR HEMOGLOBIN 29.5 pg (28-32); MEAN CORPUSCULAR VOLUME 89.3 fL (81-99); MONOCYTES # (AUTO) 0.8 (0.2-0.8); MONOCYTES % 5.8 % (4.4-11.3); NEUTROPHILS # (AUTO) 11.2 (2.1-6.9); NEUTROPHILS % 81.3 % (38.7-80.0); PLATELET COUNT 540 x10e3/uL (140-360); RED BLOOD COUNT 3.46 x10e6/uL (4.3-5.7)
[2018-04-22 05:50] LABS: ANION GAP 13.7 mmol/L (8-16); BLOOD UREA NITROGEN 6 mg/dL (7-26); BUN/CREATININE RATIO 5 (6-25); CARBON DIOXIDE 30 mmol/L (22-29); CHLORIDE 100 mmol/L (98-107); CREATININE, SERUM 1.12 mg/dL (0.72-1.25); EST GLOMERULAR FILTRATION RATE > 60 ML/MIN (60-); GLUCOSE 135 mg/dL (74-118); POTASSIUM 3.7 mmol/L (3.5-5.1); SODIUM 140 mmol/L (136-145)
[2018-04-22 08:36] VITALS: BP 108/65
[2018-04-22] MEDS: HYDROCODONE/APAP 7.5MG-325MG 1 EA TAB PO PRN ×2 (10:03→14:31)
[2018-04-22] MEDS: ONDANSETRON HCL INJ 2 MG/ML VIAL IV PRN ×2 (10:03→14:27)
[2018-04-22 10:55] VITALS: BP 108/65
[2018-04-22] MEDS ORDERED: BACTRIM DS TAB1 EACH PO (13:26)
[2018-04-22] MEDS ORDERED: TYLENOL WITH C1 EACH PO (13:26)
[2018-04-22 16:25] VITALS: BP 118/60
== END 2018-04-22 17:10 | disposition home or self-care (01) | DRG 853 ==
LOC: ER 08:44 → ERHOLD 11:46 → MED/SURG 12:39
PROVIDERS: ADMIT Family Medicine; ATTEND Family Medicine
PROC: 0DTJ4ZZ Resection of Appendix, Percutaneous Endoscopic Approach (ICD-10-PCS; principal; 2018-04-11 19:48)
DX: A41.9 Sepsis, unspecified organism (principal); K35.2 Acute appendicitis with generalized peritonitis; N17.9 Acute kidney failure, unspecified; R65.20 Severe sepsis without septic shock; F90.9 Attention-deficit hyperactivity disorder, unspecified type; Z72.0 Tobacco use; F10.10 Alcohol abuse, uncomplicated; F41.8 Other specified anxiety disorders; K59.00 Constipation, unspecified; D72.829 Elevated white blood cell count, unspecified; D64.9 Anemia, unspecified
CPT/HCPCS: 36415; 49406; 74177; 74470; 80048; 80053; 83735; 85025; 85610; 85730; 87070; 87205; 88304; 96367; 96376; 99152; 99153; 99284; C1729; J0694; J1100; J1170; J1885; J2001; J2250; J2270; J2405; J2543; J7030; Q9967

== ENCOUNTER 2021-01-27 08:38 | Emergency (ER) | payer SELFPAY ==
[~2021-01-27] VITALS: Ht 182.9 cm; Wt 86.2 kg
[~2021-01-27 08:38] MED LIST changes: +BACTRIM DS TAB1 EACH PO; +TYLENOL WITH C1 EACH PO
[2021-01-27] MEDS ORDERED: KETOROLAC TROMETHAMINE 30 MG/ML VIAL IV STA (09:02)
[2021-01-27] MEDS ORDERED: ONDANSETRON HCL INJ 2MG/ML 2ML 2 MG/ML VIAL IV STA (09:02)
[2021-01-27] MEDS ORDERED: SODIUM CHLORIDE 0.9% 1000ML 1,000 ML IV SCH (09:15)
[2021-01-27] MEDS ORDERED: FENTANYL CITRATE/PF 100MCG/2 ML INJ IV ONE (09:15)
[2021-01-27 09:34] LABS: BASOPHILS % 0.6 % (0.0-1.0); EOSINOPHILS # (AUTO) 0.3 (0.0-0.4); EOSINOPHILS % 3.9 % (0.0-6.0); HEMOGLOBIN 13.7 g/dL (14.0-18.0); LYMPHOCYTES # (AUTO) 2.2 (1.0-3.2); LYMPHOCYTES % 31.3 % (18.0-39.1); MEAN CORPUSCULAR HEMOGLOBIN 30.4 pg (28-32); MEAN CORPUSCULAR HGB CONC 33.4 g/dL (31-35); MEAN CORPUSCULAR VOLUME 90.9 fL (81-99); MONOCYTES # (AUTO) 0.6 (0.2-0.8); MONOCYTES % 8.1 % (4.4-11.3); NEUTROPHILS % 55.5 % (38.7-80.0); PLATELET COUNT 253 x10e3/uL (140-360); RED BLOOD COUNT 4.51 x10e6/uL (4.3-5.7); RED CELL DISTRIBUTION WIDTH 13.4 % (11.7-14.4)
[2021-01-27 09:54] LABS: ALANINE AMINOTRANSFERASE 13 IU/L (0-55); ALBUMIN 3.6 g/dL (3.5-5.0); ALBUMIN/GLOBULIN RATIO 1.2 (0.8-2.0); ALKALINE PHOSPHATASE 98 IU/L (40-150); ANION GAP 12.4 mmol/L (8-16); BLOOD UREA NITROGEN 11 mg/dL (7-26); BUN/CREATININE RATIO 11 (6-25); CALCIUM 8.9 mg/dL (8.4-10.2); CARBON DIOXIDE 28 mmol/L (22-29); CHLORIDE 107 mmol/L (98-107); CREATININE, SERUM 1.03 mg/dL (0.72-1.25); EST GLOMERULAR FILTRATION RATE > 60 ML/MIN (60-); GLUCOSE 108 mg/dL (74-118); POTASSIUM 4.4 mmol/L (3.5-5.1); SODIUM 143 mmol/L (136-145)
[2021-01-27] MEDS ORDERED: ULTRAM50 MG PO (10:29)
[2021-01-27] MEDS ORDERED: SODIUM CHLORIDE 0.9% 1000ML 1,000 ML IV ONE (11:30)
[2021-01-27] MEDS ORDERED: SODIUM CHLORIDE 0.9% 1000ML 1,000 ML ONE (11:33)
[2021-01-27 12:22] LABS: CLARITY,URINE CLEAR (CLEAR); COLOR,URINE YELLOW (YELLOW)
[2021-01-27 12:23] LABS: KETONES,URINE NEGATIVE (NEGATIVE); LEUKOCYTE ESTERASE ,URINE TRACE (NEGATIVE); NITRITE,URINE NEGATIVE (NEGATIVE); PROTEIN,URINE DIPSTICK 1+ (NEGATIVE); URINE UROBILINOGEN 0.2 mg/dL (0.2 - 1)
[2021-01-27 12:37] LABS: BACTERIA,URINE MANY /HPF; EPITHELIAL CELLS,URINE MANY /LPF; MUCUS,URINE MANY (RARE); RBC,URINE 21-50 /HPF (0-5); WBC,URINE (MAN) >50 /HPF (0-5)
[2021-01-27] MEDS ORDERED: CEPHALEXIN500 MG PO (12:55)
[2021-01-27 12:59] VITALS: BP 120/80
== END 2021-01-27 13:00 | disposition home or self-care (01) ==
LOC: ER 08:59
DX: M54.5 Low back pain (principal); R30.0 Dysuria; N20.0 Calculus of kidney; F41.9 Anxiety disorder, unspecified; F32.9 Major depressive disorder, single episode, unspecified
CPT/HCPCS: 36415; 74176; 80053; 81001; 83690; 85025; 99284; J1885; J2405; J7030